=== PATIENT | female | born 1970 | race Caucasian/White ===

== ENCOUNTER → 2016-12-27 | Outpatient (CLI) | payer OTHER ==
[2016-12-27 18:37] LABS: BASO # 0.1 x10^3/uL (0.0-0.2); BASO % 1 % (0-3); EOS % 2 % (0-3); HEMATOCRIT 40.1 % (36.0-47.0); HEMOGLOBIN 13.7 g/dL (12.0-15.5); LYMPH # 1.7 x10^3/uL (1.0-4.8); LYMPH % 27 % (24-48); MEAN CORPUSCULAR HEMOGLOBIN 31 pg (25-35); MEAN CORPUSCULAR HGB CONC 34 g/dL (31-37); MEAN CORPUSCULAR VOLUME 91 fL (79-100); MONO % 10 % (0-9); NEUT % 60 % (31-73); PLATELET COUNT 281 x10^3/uL (140-400); RED BLOOD COUNT 4.43 x10^6/uL (3.50-5.40); RED CELL DISTRIBUTION WIDTH 14.6 % (11.5-14.5); WHITE BLOOD COUNT 6.4 x10^3/uL (4.0-11.0)
[2016-12-27 18:56] LABS: ALBUMIN 4.1 g/dL (3.4-5.0); ALBUMIN/GLOBULIN RATIO 1.3 (1.0-1.7); CALCIUM 8.8 mg/dL (8.5-10.1); CREATININE 1.1 mg/dL (0.6-1.0); POTASSIUM 3.6 mmol/L (3.5-5.1); TOTAL BILIRUBIN 0.5 mg/dL (0.2-1.0); TOTAL PROTEIN 7.3 g/dL (6.4-8.2)
[2016-12-27 19:03] LABS: CHOLESTEROL/HDL RATIO 3.7
[2016-12-28 12:22] LABS: VITAMIN D25(OH)TOTAL 45.5 ng/mL (30.0-100.0)
[2016-12-28 14:31] LABS: FSH 71.3 mIU/mL (.); PROLACTIN 19.9 ng/mL (4.8-23.3)
== END | disposition home or self-care (01) ==
LOC: LAB 17:51
PROVIDERS: ATTEND Physician Assistant Surgical
DX: Z00.00 Encounter for general adult medical examination without abnormal findings (principal)
CPT/HCPCS: 36415; 80053; 80061; 82306; 83001; 83002; 84146; 84443; 85027

== ENCOUNTER 2017-03-05 21:57 | Emergency (ER) | payer OTHER ==
[~2017-03-05] VITALS: Ht 170.2 cm; Wt 59.0 kg
[2017-03-05 22:12] VITALS: BP 130/58
[2017-03-05] MEDS ORDERED: NAPROXEN 500 MG TABLET PO STA (22:31)
[2017-03-05] MEDS ORDERED: HYDROcodone/APAP 5/325MG 1 TAB TABLET PO ONE (22:45)
[2017-03-05] MEDS ORDERED: ALPR1TAB2 PO (22:52)
[2017-03-05] MEDS ORDERED: OMEP40CA5 PO (22:53)
[2017-03-05] MEDS ORDERED: CYAN10005 PO (22:53)
[2017-03-05] MEDS ORDERED: ONDANSETRON ODT 4 MG TAB.RAPDIS. PO ONE (23:00)
[2017-03-05] MEDS ORDERED: MORPHINE SULFATE 10 MG/ML VIAL. IM ONE (23:00)
[2017-03-05] MEDS ORDERED: HYDR-971 PO (23:14)
--- NOTE | 2017-03-05 23:14 | PHYS DOC ---
Past Medical History Past Medical History: Anxiety, GERD Past Surgical History: Tubal ligation Alcohol Use: None Drug Use: None Adult General Chief Complaint Chief Complaint: ANKLE PROBLEM HPI HPI Patient is a 46 year old female who presents today with moderate right lateral ankle and right lateral foot pain that began today after she jumped off a 5 foot deck and twisted her ankle. The allergy Review of Systems Review of Systems Constitutional: Denies fever or chills [] Eyes: Denies change in visual acuity, redness, or eye pain [] Musculoskeletal:right lateral ankle and right lateral foot pain Integument: Denies rash or skin lesions [] Neurologic: Denies headache, focal weakness or sensory changes [] Endocrine: Denies polyuria or polydipsia [] Current Medications Current Medications Current Medications Medications (Trade) Dose Ordered Sig/Maricarmen Start Time Stop Time Status Last Admin Dose Admin Acetaminophen/ Hydrocodone Bitart (Lortab 5/325) 2 tab 1X ONCE 03/05/17 22:45 03/05/17 22:46 UNV Morphine Sulfate 5 mg 1X ONCE 03/05/17 23:00 03/05/17 23:01 DC 03/05/17 23:00 5 MG Naproxen (Naprosyn) 500 mg 1X STAT 03/05/17 22:31 03/05/17 22:32 UNV Ondansetron HCl (Zofran Odt) 4 mg 1X ONCE 03/05/17 23:00 03/05/17 23:01 DC 03/05/17 23:00 4 MG Allergies Allergies Allergies Coded Allergies Type Severity Reaction Last Updated Verified acetaminophen Allergy Unknown nausea vomitting 03/05/17 Yes hydrocodone Allergy Unknown nasuea vomiting 03/05/17 Yes oxycodone Allergy Unknown nausea vomitting 03/05/17 Yes Physical Exam Physical Exam Constitutional: Well developed, well nourished, no acute distress, non-toxic appearance. [] Skin: Warm, dry, no erythema, no rash. [] Back: No tenderness, no CVA tenderness. [] Extremities: Right ankle with moderate amount of soft tissue swelling. Tenderness on palpation of medial and lateral right ankle. Slight tenderness on palpation of the base of the fifth metatarsal of the right foot. Limited range of motion to the right ankle and foot due to pain. Full range of motion to the right toes. +2 right pedal pulse. Cap refill less than 2 seconds bilateral lower extremity. Neurologic: Alert and oriented X 3, normal motor function, normal sensory function, no focal deficits noted. [] Psychologic: Affect normal, judgement normal, mood normal. [] Current Patient Data Vital Signs Vital Signs Date Time Temp Pulse Resp B/P (MAP) Pulse Ox O2 Delivery O2 Flow Rate FiO2 03/05/17 23:00 99 Room Air 03/05/17 22:12 98.4 80 20 98.4 EKG EKG [] Radiology/Procedures Radiology/Procedures [] Course & Med Decision Making Course & Med Decision Making Pertinent Labs and Imaging studies reviewed. (See chart for details) Patient is in the ED right foot and right ankle pain after jumping off a deck rolling her ankle. Right foot and right ankle x-rays interpreted by Dr. Pierre were negative for any acute findings. Patient was placed in a posterior leg splint by the hvac maintenance technician. Neurovascular exam done by me post splinting is normal. Ice elevation encouraged. Follow-up with orthopedic doctor in the next 7 days Dragon Disclaimer Dragon Disclaimer This electronic medical record was generated, in whole or in part, using a voice recognition dictation system. Departure Departure Impression: Primary Impression: Right ankle sprain Additional Impression: Right foot sprain Disposition: 01 HOME, SELF-CARE Condition: STABLE Referrals: ANTONIO FERNANDEZ MD (PCP) EFRAIN COX MD Follow-up in the next 7 days Patient Instructions: Ankle Sprain, Foot Sprain-Brief Additional Instructions: You were seen for right ankle sprain and right sprain. Ice and elevate the extremity. Follow-up with the provided orthopedic doctor in the next 7 days. Scripts Naproxen (NAPROXEN) 500 Mg Tablet.dr 1 TAB PO BID, #60 TAB 2 Refills Prov: ARELY LAMB APRN 03/05/17 Ondansetron (ZOFRAN ODT) 4 Mg Tab.rapdis 1 TAB SL Q8HRS, #15 TAB Prov: ARELY LAMB APRN 03/05/17 Hydrocodone/Apap 5-325 (NORCO 5-325 TABLET) 1 Each Tablet 1 TAB PO PRN Q6HRS Y for PAIN, #14 TAB 0 Refills Prov: ARELY LAMB APRN 03/05/17 Problem Qualifiers Primary Impression: Right ankle sprain Encounter type: initial encounter Involved ligament of ankle: unspecified ligament Qualified Codes: S93.401A - Sprain of unspecified ligament of right ankle, initial encounter Additional Impression: Right foot sprain Encounter type: initial encounter Qualified Codes: S93.601A - Unspecified sprain of right foot, initial encounter ARELY LAMB PIPELINES MANAGER Mar 05, 2017 23:14
[2017-03-05] MEDS ORDERED: ONDA4TAB10 SL (23:17)
[2017-03-05] MEDS ORDERED: NAPR500T8 PO (23:22)
--- NOTE | 2017-03-06 08:52 | RAD ---
Indication fall, pain. AP oblique and lateral views of the right ankle were obtained. No bony abnormality is seen. Soft tissue swelling medially is noted.
--- NOTE | 2017-03-06 08:56 | RAD ---
Indication fall, pain. AP oblique and lateral views of the right foot were obtained. No bony abnormality is seen
== END 2017-03-05 23:32 | disposition home or self-care (01) ==
LOC: ER 21:57
DX: S93.401A Sprain of unspecified ligament of right ankle, initial encounter (principal); S93.601A Unspecified sprain of right foot, initial encounter; K21.9 Gastro-esophageal reflux disease without esophagitis; F41.9 Anxiety disorder, unspecified; Z88.5 Allergy status to narcotic agent; Z88.6 Allergy status to analgesic agent; X58.XXXA Exposure to other specified factors, initial encounter; Y93.39 Activity, other involving climbing, rappelling and jumping off; Y92.89 Other specified places as the place of occurrence of the external cause; Y99.8 Other external cause status
CPT/HCPCS: 29515; 73610; 73630; 96372; 99284; J2270; Q0162

== ENCOUNTER 2017-03-19 15:51 | Emergency (ER) | payer OTHER ==
[~2017-03-19 15:51] MED LIST: ALPR1TAB2 PO; CYAN10005 PO; HYDR-971 PO; NAPR500T8 PO; OMEP40CA5 PO; ONDA4TAB10 SL
[2017-03-19] MEDS ORDERED: IV RINGERS,LACTATED 1000ML 1,000 ML IV SCH (16:33)
--- NOTE | 2017-03-19 16:33 | PHYS DOC ---
Past Medical History Past Medical History: Anxiety, GERD Past Surgical History: Tubal ligation Alcohol Use: None Drug Use: None Adult General Chief Complaint Chief Complaint: NAUSEA/VOMITING/DIARRHA HPI HPI Patient is a 46 year old female who presents with nausea vomiting since yesterday. She states she hurt her ankle partial week ago is been on 5/ 325 hydrocodone has not had a bowel movement since then. She denies any abdominal pain. She states that she was seen yesterday for [facility] they did labs and gave her half a liter of fluids she requested an enema and they dismissed her without the enema. She states she's been having more nausea and not able to eat or drink. She still hasn't had a bowel movement today. Review of Systems Review of Systems Constitutional: Denies fever or chills [] Eyes: Denies change in visual acuity, redness, or eye pain [] HENT: Denies nasal congestion or sore throat [] Respiratory: Denies cough or shortness of breath [] Cardiovascular: No additional information not addressed in HPI [] GI: Denies abdominal pain, bloody stools or diarrhea, positive for nausea, vomiting, [] : Denies dysuria or hematuria [] Musculoskeletal: Denies back pain or joint pain [] Integument: Denies rash or skin lesions [] Neurologic: Denies headache, focal weakness or sensory changes [] Endocrine: Denies polyuria or polydipsia [] Current Medications Current Medications Current Medications Medications (Trade) Dose Ordered Sig/Maricarmen Start Time Stop Time Status Last Admin Dose Admin Info (Do NOT chart on this entry -- for MONITORING) 1 each PRN DAILY PRN 03/19/17 18:15 03/21/17 18:14 Iohexol (Omnipaque 240 Mg/ml) 50 ml 1X ONCE 03/19/17 18:00 03/19/17 18:01 DC Iohexol (Omnipaque 300 Mg/ml) 75 ml 1X ONCE 03/19/17 18:00 03/19/17 18:01 DC Lorazepam (Ativan) 1 mg 1X ONCE 03/19/17 18:15 03/19/17 18:16 DC Morphine Sulfate 2 mg PRN Q15MIN PRN 03/19/17 16:45 03/20/17 16:44 03/19/17 18:01 2 MG Ondansetron HCl (Zofran) 4 mg 1X ONCE 03/19/17 17:00 03/19/17 17:01 DC 03/19/17 17:06 4 MG Promethazine HCl 25 mg/Sodium Chloride 51 ml @ 101 mls/hr 1X ONCE 03/19/17 18:00 03/19/17 18:30 03/19/17 18:01 101 MLS/HR Ringer's Solution 1,000 ml @ 1,000 mls/hr Q1H 03/19/17 16:33 03/19/17 17:32 DC 03/19/17 17:05 1,000 MLS/HR Allergies Allergies Allergies Coded Allergies Type Severity Reaction Last Updated Verified acetaminophen Allergy Unknown nausea vomitting 03/05/17 Yes hydrocodone Allergy Unknown nasuea vomiting 03/05/17 Yes oxycodone Allergy Unknown nausea vomitting 03/05/17 Yes Physical Exam Physical Exam Constitutional: Well developed, well nourished, no acute distress, non-toxic appearance. [] HENT: Normocephalic, atraumatic, bilateral external ears normal, oropharynx moist, no oral exudates, nose normal. [] Eyes: PERRLA, EOMI, conjunctiva normal, no discharge. [] Neck: Normal range of motion, no tenderness, supple, no stridor. [] Cardiovascular:Heart rate regular rhythm, no murmur [] Lungs & Thorax: Bilateral breath sounds clear to auscultation [] Abdomen: Bowel sounds normal, soft, no tenderness, no masses, no pulsatile masses. [] Skin: Warm, dry, no erythema, no rash. [] Back: No tenderness, no CVA tenderness. [] Extremities: No tenderness, no cyanosis, no clubbing, ROM intact, no edema. [] Neurologic: Alert and oriented X 3, normal motor function, normal sensory function, no focal deficits noted. [] Psychologic: Affect normal, judgement normal, mood normal. [] Current Patient Data Vital Signs Vital Signs Date Time Temp Pulse Resp B/P (MAP) Pulse Ox O2 Delivery O2 Flow Rate FiO2 03/19/17 18:01 Room Air 03/19/17 16:20 98.8 92 35 162/61 (94) 100 98.8 Lab Values Laboratory Tests Test 03/19/17 15:37 03/19/17 16:20 03/19/17 16:50 POC Urine HCG, Qualitative Hcg negative (Negative) Urine Collection Type Unknown Urine Color Dk yellow Urine Clarity Clear Urine pH 5.5 Urine Specific [place] >=1.030 Urine Protein 30 mg/dL (NEG-TRACE) Urine Glucose (UA) Negative mg/dL (NEG) Urine Ketones (Stick) 40 mg/dL (NEG) Urine Blood Trace (NEG) Urine Nitrite Negative (NEG) Urine Bilirubin Small (NEG) Urine Urobilinogen Dipstick 0.2 mg/dL (0.2 mg/dL) Urine Leukocyte Esterase Negative (NEG) Urine RBC Rare /HPF (0-2) Urine WBC Rare /HPF (0-4) Urine Squamous Epithelial Cells Few /LPF Urine Bacteria Few /HPF (0-FEW) Urine Mucus Marked /LPF White Blood Count 10.9 x10^3/uL (4.0-11.0) Red Blood Count 4.30 x10^6/uL (3.50-5.40) Hemoglobin 13.1 g/dL (12.0-15.5) Hematocrit 37.8 % (36.0-47.0) Mean Corpuscular Volume 88 fL (79-100) Mean Corpuscular Hemoglobin 31 pg (25-35) Mean Corpuscular Hemoglobin Concent 35 g/dL (31-37) Red Cell Distribution Width 13.7 % (11.5-14.5) Platelet Count 362 x10^3/uL (140-400) Neutrophils (%) (Auto) 83 % (31-73) H Lymphocytes (%) (Auto) 8 % (24-48) L Monocytes (%) (Auto) 9 % (0-9) Eosinophils (%) (Auto) 0 % (0-3) Basophils (%) (Auto) 0 % (0-3) Neutrophils # (Auto) 9.1 x10^3uL (1.8-7.7) H Lymphocytes # (Auto) 0.8 x10^3/uL (1.0-4.8) L Monocytes # (Auto) 1.0 x10^3/uL (0.0-1.1) Eosinophils # (Auto) 0.0 x10^3/uL (0.0-0.7) Basophils # (Auto) 0.0 x10^3/uL (0.0-0.2) Prothrombin Time 13.5 SEC (11.7-14.0) Prothrombin Time INR 1.1 (0.8-1.1) PTT 26 SEC (24-38) Sodium Level 141 mmol/L (136-145) Potassium Level 3.3 mmol/L (3.5-5.1) L Chloride Level 102 mmol/L (98-107) Carbon Dioxide Level 27 mmol/L (21-32) Anion Gap 12 (6-14) Blood Urea Nitrogen 22 mg/dL (7-20) H Creatinine 0.9 mg/dL (0.6-1.0) Estimated GFR (Cockcroft-Gault) 68.0 Glucose Level 121 mg/dL (70-99) H Calcium Level 9.3 mg/dL (8.5-10.1) Total Bilirubin 0.7 mg/dL (0.2-1.0) Direct Bilirubin 0.1 mg/dL (0.0-0.2) Aspartate Amino Transferase (AST) 16 U/L (15-37) Alanine Aminotransferase (ALT) 34 U/L (14-59) Alkaline Phosphatase 68 U/L (46-116) Creatine Kinase 84 U/L (26-192) Creatine Kinase MB (Mass) 0.9 ng/mL (0.0-3.6) Creatine Kinase MB Relative Index 1.1 % (0-4) Total Protein 8.1 g/dL (6.4-8.2) Albumin 4.4 g/dL (3.4-5.0) Lipase 76 U/L (73-393) Laboratory Tests 03/19/17 16:50 Laboratory Tests 03/19/17 16:50 EKG EKG [] Radiology/Procedures Radiology/Procedures [] Impressions: Nausea vomiting Course & Med Decision Making Course & Med Decision Making Pertinent Labs and Imaging studies reviewed. (See chart for details) Labs show any acute abnormality's. CT abdomen and pelvis is pending at this time. Patient's being checked out to Dr. Small for final disposition. Dragon Disclaimer Dragon Disclaimer This electronic medical record was generated, in whole or in part, using a voice recognition dictation system. Departure Departure Referrals: DANIA LIPSCOMB MD (PCP) KIRA GENTILE MD Mar 19, 2017 16:33
[2017-03-19 16:43] LABS: BILIRUBIN,URINE SMALL (NEG); GLUCOSE,URINE NEGATIVE (NEG); NITRITE,URINE NEGATIVE (NEG); PH,URINE 5.5; PROTEIN,URINE 30 mg/dL (NEG-TRACE); UROBILINOGEN,URINE 0.2 mg/dL (0.2 mg/dL)
[2017-03-19 16:55] LABS: BACTERIA,URINE FEW /HPF (0-FEW); RBC,URINE RARE /HPF (0-2); SQUAMOUS EPITHELIAL CELL,UR FEW /LPF; WBC,URINE RARE /HPF (0-4)
[2017-03-19 17:00] LABS: BASO % 0 % (0-3); EOS % 0 % (0-3); HEMATOCRIT 37.8 % (36.0-47.0); HEMOGLOBIN 13.1 g/dL (12.0-15.5); LYMPH # 0.8 x10^3/uL (1.0-4.8); LYMPH % 8 % (24-48); MEAN CORPUSCULAR HEMOGLOBIN 31 pg (25-35); MEAN CORPUSCULAR HGB CONC 35 g/dL (31-37); MEAN CORPUSCULAR VOLUME 88 fL (79-100); MONO % 9 % (0-9); NEUT % 83 % (31-73); PLATELET COUNT 362 x10^3/uL (140-400); RED CELL DISTRIBUTION WIDTH 13.7 % (11.5-14.5); WHITE BLOOD COUNT 10.9 x10^3/uL (4.0-11.0)
[2017-03-19] MEDS ORDERED: ONDANSETRON PF 4 MG/2 ML VIAL. IV ONE (17:00)
[2017-03-19] MEDS: MORPHINE SULFATE 2 MG/ML DISP.SYRIN. IV/SQ PRN ×2 (17:06→18:01)
[2017-03-19 17:09] LABS: INR 1.1 (0.8-1.1); PROTHROMBIN TIME PATIENT 13.5 SEC (11.7-14.0)
[2017-03-19 17:26] LABS: CALCIUM 9.3 mg/dL (8.5-10.1); CREATININE 0.9 mg/dL (0.6-1.0); POTASSIUM 3.3 mmol/L (3.5-5.1)
[2017-03-19 17:31] LABS: ALBUMIN 4.4 g/dL (3.4-5.0); DIRECT BILIRUBIN 0.1 mg/dL (0.0-0.2); TOTAL BILIRUBIN 0.7 mg/dL (0.2-1.0); TOTAL PROTEIN 8.1 g/dL (6.4-8.2)
[2017-03-19 17:50] LABS: CKMB MASS 0.9 ng/mL (0.0-3.6)
[2017-03-19] MEDS ORDERED: IOHEXOL 240 MG/ML 50ML VIAL. PO ONE (18:00)
[2017-03-19] MEDS ORDERED: IOHEXOL 300 MG/ML 75 ML VIAL IV ONE (18:00)
[2017-03-19] MEDS ORDERED: PROMETHAZINE 25 MG in IV NORMAL SALINE 50ML 50 ML IV ONE (18:00)
[2017-03-19] MEDS ORDERED: CONTRAST GIVEN MC PRN (18:15)
[2017-03-19 20:30] VITALS: BP 102/52
--- NOTE | 2017-03-19 20:30 | RAD ---
CT abdomen and pelvis with contrast History: Left lower quadrant pain for 2 days Technique: After the administration of oral and intravenous contrast, CT imaging was performed of the abdomen and pelvis. Multiplanar images are reviewed. Exposure: One or more of the following individualized dose reduction techniques were utilized for this examination: 1. Automated exposure control 2. Adjustment of the mA and/or kV according to patient size 3. Use of iterative reconstruction technique. Comparison: November 20, 2005 Findings: There is no significant abnormality of the visualized lung bases. There is no significant abnormality of the liver, spleen, pancreas, adrenal glands. Both kidneys enhance without hydronephrosis. Gallbladder is present without obvious intraluminal abnormality by CT. Most of the oral contrast is in the proximal small bowel, not in the colon. There is more prominent retained stool in segments of the colon such as ascending through transverse colon, although also at the junction of the descending and sigmoid colon. There is no significant inflammatory change adjacent to the bowel. There is no evidence of bowel obstruction, free fluid, or free air. Atelectasis segment of normal appendix is probably visualized, difficult to otherwise evaluate due to lack of contrast opacification in this region. There is degenerative disc disease and spondylosis eccentric to the left at L4-5. There is more significant narrowing of the left L4-5 neural foramen by disc osteophyte complex with likely contact exiting left L4 nerve root. There is facet degenerative change greatest L3-4 and L4-5. The bladder has a normal configuration. Impression: 1. There is variable retained prominent stool in the colon. 2. There is narrowing of the left L4-5 neural foramen with contact exiting left L4 nerve root by disc osteophyte complex. Electronically signed by: Noble Moran MD (03/19/2017 8:26 PM) [facility]
[2017-03-19] MEDS ORDERED: MAGNESIUM CITRATE 296 ML SOLUTION. PO ONE (20:45)
--- NOTE | 2017-03-20 08:12 | RAD ---
Acute abdomen series with chest, 3 views, 03/19/2017: History: Constipation, left-sided pain There is increased stool throughout the colon. The abdominal gas pattern is otherwise unremarkable. No free air is seen in the abdomen. There is no evidence of organomegaly or abnormal abdominal calcification. The heart size and pulmonary vascularity are normal. The lungs are clear. There is no evidence of pleural fluid. IMPRESSION: Increased stool throughout the colon compatible with the history of constipation.
== END 2017-03-19 21:30 | disposition home or self-care (01) ==
LOC: ER 15:51
DX: R11.2 Nausea with vomiting, unspecified (principal); K21.9 Gastro-esophageal reflux disease without esophagitis; Z88.6 Allergy status to analgesic agent; Z88.5 Allergy status to narcotic agent
CPT/HCPCS: 36415; 74022; 74177; 80048; 80076; 81001; 81025; 82553; 83690; 85027; 85610; 85730; 96361; 96365; 96375; 96376; 99285; J2060; J2270; J2405; J2550; Q9966; Q9967; J7120

== ENCOUNTER 2017-03-21 09:39 | Inpatient (IN) | payer OTHER ==
[~2017-03-21] VITALS: Ht 170.2 cm; Wt 54.2 kg
[2017-03-21] MEDS ORDERED: IV NORMAL SALINE 1000ML BAG 1,000 ML IV ONE ×2 (10:30→12:00)
[2017-03-21] MEDS ORDERED: ONDANSETRON PF 4 MG/2 ML VIAL. IV ONE (12:00)
[2017-03-21 13:08] VITALS: BP 110/48
[2017-03-21] MEDS: ONDANSETRON PF 4 MG/2 ML VIAL. IV PRN ×2 (14:43→21:49)
[2017-03-21] MEDS: POTASSIUM CL 20MEQ D5-0.45NACL 1,000 ML IV SCH ×2 (14:51→21:50)
[2017-03-21 15:00] VITALS: BP 96/40
[2017-03-21 15:12] LABS: BASO % 0 % (0-3); EOS % 0 % (0-3); HEMATOCRIT 32.4 % (36.0-47.0); HEMOGLOBIN 10.7 g/dL (12.0-15.5); LYMPH # 1.4 x10^3/uL (1.0-4.8); LYMPH % 17 % (24-48); MEAN CORPUSCULAR HEMOGLOBIN 30 pg (25-35); MEAN CORPUSCULAR HGB CONC 33 g/dL (31-37); MEAN CORPUSCULAR VOLUME 91 fL (79-100); MONO % 12 % (0-9); NEUT % 71 % (31-73); PLATELET COUNT 241 x10^3/uL (140-400); RED BLOOD COUNT 3.55 x10^6/uL (3.50-5.40); RED CELL DISTRIBUTION WIDTH 13.2 % (11.5-14.5); WHITE BLOOD COUNT 8.3 x10^3/uL (4.0-11.0)
[2017-03-21 15:29] LABS: ALBUMIN 3.3 g/dL (3.4-5.0); ALBUMIN/GLOBULIN RATIO 1.3 (1.0-1.7); CALCIUM 7.3 mg/dL (8.5-10.1); CREATININE 0.8 mg/dL (0.6-1.0); GFR 77.9; POTASSIUM 3.2 mmol/L (3.5-5.1); TOTAL BILIRUBIN 0.5 mg/dL (0.2-1.0); TOTAL PROTEIN 5.9 g/dL (6.4-8.2)
--- NOTE | 2017-03-21 15:45 | RAD ---
Portable abdomen, 03/21/2017: History: Abdominal pain, nausea and vomiting There is increased stool in the colon. The abdominal gas pattern is otherwise unremarkable. There is no evidence of organomegaly or abnormal abdominal calcifications. IMPRESSION: Increased stool in the colon.
[2017-03-21] MEDS: LUBIPROSTONE 8 MCG CAPSULE PO SCH (17:00)
[2017-03-21] MEDS: KETOROLAC TROMETHAMINE 30 MG/ML INJ. IV PRN (17:48)
[2017-03-21] MEDS ORDERED: PEG 3350/NA SULF,BICARB,CL/KCL 4,000 ML SOLUTION. PO ONE (18:00)
[2017-03-21] MEDS: PROMETHAZINE 25 MG in IV NORMAL SALINE 50ML 50 ML IV PRN (19:24)
[2017-03-21 19:48] VITALS: BP 117/64
[2017-03-21 23:21] VITALS: BP 104/47
[2017-03-22 03:14] VITALS: BP 102/52
[2017-03-22] MEDS: POTASSIUM CL 20MEQ D5-0.45NACL 1,000 ML IV SCH ×3 (05:50→17:40)
[2017-03-22 07:00] VITALS: BP 108/55
[2017-03-22] MEDS: LUBIPROSTONE 8 MCG CAPSULE PO SCH ×2 (08:23→17:46)
[2017-03-22] MEDS: POLYETHYLENE GLYCOL 3350 17 GM PACKET. PO SCH (08:24)
[2017-03-22 10:34] VITALS: BP 98/58
[2017-03-22] MEDS: PROMETHAZINE 25 MG in IV NORMAL SALINE 50ML 50 ML IV PRN ×2 (11:06→20:03)
[2017-03-22] MEDS ORDERED: METHYLNALTREXONE 12 MG/0.6 ML VIAL. SQ ONE (12:00)
--- NOTE | 2017-03-22 12:01 | PDOC2 ---
CONSULT Date of Consult Date of Consult DATE: 03/22/17 TIME: 11:58 Reason for Consult Reason for Consult: abd pain/constipation Current Medications Current Medications Current Medications Sodium Chloride 1,000 ml @ 0 mls/hr 1X ONCE IV Last administered on 03/21/17 10:06; Start 03/21/17 at 10:30; Stop 03/21/17 at 10:31; Status DC Sodium Chloride 1,000 ml @ 1,000 mls/hr 1X ONCE IV Last administered on 11:35; Start 03/21/17 at 12:00; Stop 03/21/17 at 12:59; Status DC Ondansetron HCl (Zofran) 4 mg 1X ONCE IV Last administered on 03/21/17 12:15; Start 03/21/17 at 12:00; Stop 03/21/17 at 12:02; Status DC Potassium Chloride/Dextrose/ Sod Cl 1,000 ml @ 150 mls/hr Q6H40M IV Last administered on 03/22/17 05:50; Start 03/21/17 at 15:00 Ondansetron HCl (Zofran) 4 mg PRN Q4HRS PRN IV NAUSEA/VOMITING Last administered on 03/21/17 21:49; Start 03/21/17 at 14:30 Lorazepam (Ativan) 2 mg PRN Q12HR PRN IV ANXIETY / AGITATION Last administered on 03/21/17 14:53; Start 03/21/17 at 14:30; Stop 03/21/17 at 21:28; Status DC Polyethylene Glycol (miraLAX PACKET) 17 gm DAILY PO Last administered on 08:24; Start 03/22/17 at 09:00 Sodium Cl/Sod Bicarb/Potass Cl/ PEG (Golytely) 4,000 ml 1X ONCE PO Last administered on 03/21/17 17:48; Start 03/21/17 at 18:00; Stop 03/21/17 at 18:01; Status DC Lubiprostone (Amitiza) 8 mcg BIDWMEALS PO Last administered on 03/22/17 08:23; Start 03/21/17 at 17:00 Ketorolac Tromethamine (Toradol) 30 mg PRN Q6HRS PRN IV PAIN Last administered on 03/21/17 17:48; Start 03/21/17 at 17:00; Stop 03/26/17 at 16:59 Promethazine HCl 25 mg/Sodium Chloride 51 ml @ 101 mls/hr PRN Q6HRS PRN IV NAUSEA/VOMITING Last administered on 03/22/17 11:06; Start 03/21/17 at 18:00 Lorazepam (Ativan) 2 mg PRN Q8HRS PRN IV ANXIETY / AGITATION Last administered on 03/22/17 08:23; Start 03/21/17 at 22:00 Methylnaltrexone [place] (Relistor) 12 mg 1X ONCE SQ ; Start 03/22/17 at 12:00; Stop 03/22/17 at 12:01 Lubiprostone (Amitiza) 24 mcg BIDWMEALS PO ; Start 03/22/17 at 17:00 Active Scripts Active Naproxen 500 Mg Tablet. 1 Tab PO BID Zofran Odt (Ondansetron) 4 Mg Tab.rapdis 1 Tab SL Q8HRS Albin 5-325 Tablet (Acetaminophen/Hydrocodone Bitart) 1 Each Tablet 1 Tab PO PRN Q6HRS PRN Reported Vitamin B-12 (Cyanocobalamin (Vitamin B-12)) 1,000 Mcg Tablet 1 Tab PO DAILY Omeprazole 40 Mg Capsule. 1 Cap PO DAILY Xanax (Alprazolam) 1 Mg Tablet 1 Tab PO BID Allergies Allergies: Coded Allergies: acetaminophen (Verified Allergy, Intermediate, nausea vomitting, 03/21/17) hydrocodone (Verified Allergy, Intermediate, nasuea vomiting, 03/21/17) oxycodone (Verified Allergy, Intermediate, nausea vomitting, 03/21/17) Vitals VITALS Vital Signs Date Time Temp Pulse Resp B/P (MAP) Pulse Ox O2 Delivery O2 Flow Rate FiO2 03/22/17 10:34 99.7 71 20 98/58 (71) 100 Room Air 99.7 Labs Labs Laboratory Tests Test 03/21/17 14:50 White Blood Count 8.3 x10^3/uL (4.0-11.0) Red Blood Count 3.55 x10^6/uL (3.50-5.40) Hemoglobin 10.7 g/dL (12.0-15.5) Hematocrit 32.4 % (36.0-47.0) Mean Corpuscular Volume 91 fL (79-100) Mean Corpuscular Hemoglobin 30 pg (25-35) Mean Corpuscular Hemoglobin Concent 33 g/dL (31-37) Red Cell Distribution Width 13.2 % (11.5-14.5) Platelet Count 241 x10^3/uL (140-400) Neutrophils (%) (Auto) 71 % (31-73) Lymphocytes (%) (Auto) 17 % (24-48) Monocytes (%) (Auto) 12 % (0-9) Eosinophils (%) (Auto) 0 % (0-3) Basophils (%) (Auto) 0 % (0-3) Neutrophils # (Auto) 5.8 x10^3uL (1.8-7.7) Lymphocytes # (Auto) 1.4 x10^3/uL (1.0-4.8) Monocytes # (Auto) 1.0 x10^3/uL (0.0-1.1) Eosinophils # (Auto) 0.0 x10^3/uL (0.0-0.7) Basophils # (Auto) 0.0 x10^3/uL (0.0-0.2) Sodium Level 140 mmol/L (136-145) Potassium Level 3.2 mmol/L (3.5-5.1) Chloride Level 106 mmol/L (98-107) Carbon Dioxide Level 29 mmol/L (21-32) Anion Gap 5 (6-14) Blood Urea Nitrogen 18 mg/dL (7-20) Creatinine 0.8 mg/dL (0.6-1.0) Estimated GFR (Cockcroft-Gault) 77.9 BUN/Creatinine Ratio 23 (6-20) Glucose Level 91 mg/dL (70-99) Calcium Level 7.3 mg/dL (8.5-10.1) Total Bilirubin 0.5 mg/dL (0.2-1.0) Aspartate Amino Transf (AST/SGOT) 9 U/L (15-37) Alanine Aminotransferase (ALT/SGPT) 25 U/L (14-59) Alkaline Phosphatase 49 U/L (46-116) Total Protein 5.9 g/dL (6.4-8.2) Albumin 3.3 g/dL (3.4-5.0) Albumin/Globulin Ratio 1.3 (1.0-1.7) Laboratory Tests Test 03/21/17 14:50 White Blood Count 8.3 x10^3/uL (4.0-11.0) Red Blood Count 3.55 x10^6/uL (3.50-5.40) Hemoglobin 10.7 g/dL (12.0-15.5) Hematocrit 32.4 % (36.0-47.0) Mean Corpuscular Volume 91 fL (79-100) Mean Corpuscular Hemoglobin 30 pg (25-35) Mean Corpuscular Hemoglobin Concent 33 g/dL (31-37) Red Cell Distribution Width 13.2 % (11.5-14.5) Platelet Count 241 x10^3/uL (140-400) Neutrophils (%) (Auto) 71 % (31-73) Lymphocytes (%) (Auto) 17 % (24-48) Monocytes (%) (Auto) 12 % (0-9) Eosinophils (%) (Auto) 0 % (0-3) Basophils (%) (Auto) 0 % (0-3) Neutrophils # (Auto) 5.8 x10^3uL (1.8-7.7) Lymphocytes # (Auto) 1.4 x10^3/uL (1.0-4.8) Monocytes # (Auto) 1.0 x10^3/uL (0.0-1.1) Eosinophils # (Auto) 0.0 x10^3/uL (0.0-0.7) Basophils # (Auto) 0.0 x10^3/uL (0.0-0.2) Sodium Level 140 mmol/L (136-145) Potassium Level 3.2 mmol/L (3.5-5.1) Chloride Level 106 mmol/L (98-107) Carbon Dioxide Level 29 mmol/L (21-32) Anion Gap 5 (6-14) Blood Urea Nitrogen 18 mg/dL (7-20) Creatinine 0.8 mg/dL (0.6-1.0) Estimated GFR (Cockcroft-Gault) 77.9 BUN/Creatinine Ratio 23 (6-20) Glucose Level 91 mg/dL (70-99) Calcium Level 7.3 mg/dL (8.5-10.1) Total Bilirubin 0.5 mg/dL (0.2-1.0) Aspartate Amino Transf (AST/SGOT) 9 U/L (15-37) Alanine Aminotransferase (ALT/SGPT) 25 U/L (14-59) Alkaline Phosphatase 49 U/L (46-116) Total Protein 5.9 g/dL (6.4-8.2) Albumin 3.3 g/dL (3.4-5.0) Albumin/Globulin Ratio 1.3 (1.0-1.7) Assessment/Plan Assessment/Plan Abd pain- with constipation, most likely opioid induced. Await response to bowel prep with go lytely and amitiza. One dose of relistor will be administered as well. TFTS to be checked in interim. Full note dictated CHACE MCNEAL MD Mar 22, 2017 12:01
--- NOTE | 2017-03-22 14:32 | PDOC1 ---
History and Physical Date of Admission Date of Admission DATE: 03/21/17 Identification/Chief Complaint Chief Complaint abd pain, Nausea , Vomiting Problems: Source Source: Chart review, Patient History of Present Illness History of Present Illness had ankle sprain 2 weeks ago , has been taking [place] and anti inflammatory, now with constipation , NO BM x 2 weeks and N/V, dehydration, abd pain, weak, not feeling good, lost weight Past Medical History Psych: Anxiety, Depression Musculoskeletal: Other (ankle sprain, pain) Past Surgical History Past Surgical History: Tubal Ligation Family History Family History: Depression Social History Smoke: No ALCOHOL: rare Drugs: None Current Medications Current Medications Current Medications Sodium Chloride 1,000 ml @ 0 mls/hr 1X ONCE IV Last administered on 03/21/17 10:06; Start 03/21/17 at 10:30; Stop 03/21/17 at 10:31; Status DC Sodium Chloride 1,000 ml @ 1,000 mls/hr 1X ONCE IV Last administered on 11:35; Start 03/21/17 at 12:00; Stop 03/21/17 at 12:59; Status DC Ondansetron HCl (Zofran) 4 mg 1X ONCE IV Last administered on 03/21/17 12:15; Start 03/21/17 at 12:00; Stop 03/21/17 at 12:02; Status DC Potassium Chloride/Dextrose/ Sod Cl 1,000 ml @ 150 mls/hr Q6H40M IV Last administered on 03/22/17 05:50; Start 03/21/17 at 15:00 Ondansetron HCl (Zofran) 4 mg PRN Q4HRS PRN IV NAUSEA/VOMITING Last administered on 03/21/17 21:49; Start 03/21/17 at 14:30 Lorazepam (Ativan) 2 mg PRN Q12HR PRN IV ANXIETY / AGITATION Last administered on 03/21/17 14:53; Start 03/21/17 at 14:30; Stop 03/21/17 at 21:28; Status DC Polyethylene Glycol (miraLAX PACKET) 17 gm DAILY PO Last administered on 08:24; Start 03/22/17 at 09:00 Sodium Cl/Sod Bicarb/Potass Cl/ PEG (Golytely) 4,000 ml 1X ONCE PO Last administered on 03/21/17 17:48; Start 03/21/17 at 18:00; Stop 03/21/17 at 18:01; Status DC Lubiprostone (Amitiza) 8 mcg BIDWMEALS PO Last administered on 03/22/17 08:23; Start 03/21/17 at 17:00; Stop 03/22/17 at 12:19; Status DC Ketorolac Tromethamine (Toradol) 30 mg PRN Q6HRS PRN IV PAIN Last administered on 03/21/17 17:48; Start 03/21/17 at 17:00; Stop 03/26/17 at 16:59 Promethazine HCl 25 mg/Sodium Chloride 51 ml @ 101 mls/hr PRN Q6HRS PRN IV NAUSEA/VOMITING Last administered on 03/22/17 11:06; Start 03/21/17 at 18:00 Lorazepam (Ativan) 2 mg PRN Q8HRS PRN IV ANXIETY / AGITATION Last administered on 03/22/17 08:23; Start 03/21/17 at 22:00 Methylnaltrexone [place] (Relistor) 12 mg 1X ONCE SQ Last administered on 12:58; Start 03/22/17 at 12:00; Stop 03/22/17 at 12:01; Status DC Lubiprostone (Amitiza) 24 mcg BIDWMEALS PO ; Start 03/22/17 at 17:00 Active Scripts Active Naproxen 500 Mg Tablet. 1 Tab PO BID Zofran Odt (Ondansetron) 4 Mg Tab.rapdis 1 Tab SL Q8HRS Gladstone 5-325 Tablet (Acetaminophen/Hydrocodone Bitart) 1 Each Tablet 1 Tab PO PRN Q6HRS PRN Reported Vitamin B-12 (Cyanocobalamin (Vitamin B-12)) 1,000 Mcg Tablet 1 Tab PO DAILY Omeprazole 40 Mg Capsule. 1 Cap PO DAILY Xanax (Alprazolam) 1 Mg Tablet 1 Tab PO BID Allergies Allergies: Coded Allergies: acetaminophen (Verified Allergy, Intermediate, nausea vomitting, 03/21/17) hydrocodone (Verified Allergy, Intermediate, nasuea vomiting, 03/21/17) oxycodone (Verified Allergy, Intermediate, nausea vomitting, 03/21/17) ROS General: YES: Appetite PSYCHOLOGICAL ROS: YES: Anxiety HEENT: YES: Heacaches Gastrointestinal: Yes Nausea, Yes Vomiting, Yes Abdominal Pain, Yes Constipation Neurological: Yes Dizziness Physical Exam General: Alert, Oriented X3 HEENT: Atraumatic, PERRLA Lungs: Clear to auscultation Heart: RRR Abdomen: Normal bowel sounds, Other (bloated, diffuse mild tenderness) Extremities: No clubbing, No cyanosis, No edema Skin: No rashes Neuro: Normal gait, Normal speech, Strength at 5/5 X4 ext Psych/Mental Status: Mental status NL Vitals Vitals Vital Signs Date Time Temp Pulse Resp B/P (MAP) Pulse Ox O2 Delivery O2 Flow Rate FiO2 03/22/17 10:34 99.7 71 20 98/58 (71) 100 Room Air 99.7 Labs Labs Laboratory Tests Test 03/21/17 14:50 White Blood Count 8.3 x10^3/uL (4.0-11.0) Red Blood Count 3.55 x10^6/uL (3.50-5.40) Hemoglobin 10.7 g/dL (12.0-15.5) Hematocrit 32.4 % (36.0-47.0) Mean Corpuscular Volume 91 fL (79-100) Mean Corpuscular Hemoglobin 30 pg (25-35) Mean Corpuscular Hemoglobin Concent 33 g/dL (31-37) Red Cell Distribution Width 13.2 % (11.5-14.5) Platelet Count 241 x10^3/uL (140-400) Neutrophils (%) (Auto) 71 % (31-73) Lymphocytes (%) (Auto) 17 % (24-48) Monocytes (%) (Auto) 12 % (0-9) Eosinophils (%) (Auto) 0 % (0-3) Basophils (%) (Auto) 0 % (0-3) Neutrophils # (Auto) 5.8 x10^3uL (1.8-7.7) Lymphocytes # (Auto) 1.4 x10^3/uL (1.0-4.8) Monocytes # (Auto) 1.0 x10^3/uL (0.0-1.1) Eosinophils # (Auto) 0.0 x10^3/uL (0.0-0.7) Basophils # (Auto) 0.0 x10^3/uL (0.0-0.2) Sodium Level 140 mmol/L (136-145) Potassium Level 3.2 mmol/L (3.5-5.1) Chloride Level 106 mmol/L (98-107) Carbon Dioxide Level 29 mmol/L (21-32) Anion Gap 5 (6-14) Blood Urea Nitrogen 18 mg/dL (7-20) Creatinine 0.8 mg/dL (0.6-1.0) Estimated GFR (Cockcroft-Gault) 77.9 BUN/Creatinine Ratio 23 (6-20) Glucose Level 91 mg/dL (70-99) Calcium Level 7.3 mg/dL (8.5-10.1) Total Bilirubin 0.5 mg/dL (0.2-1.0) Aspartate Amino Transf (AST/SGOT) 9 U/L (15-37) Alanine Aminotransferase (ALT/SGPT) 25 U/L (14-59) Alkaline Phosphatase 49 U/L (46-116) Total Protein 5.9 g/dL (6.4-8.2) Albumin 3.3 g/dL (3.4-5.0) Albumin/Globulin Ratio 1.3 (1.0-1.7) Laboratory Tests Test 03/21/17 14:50 White Blood Count 8.3 x10^3/uL (4.0-11.0) Red Blood Count 3.55 x10^6/uL (3.50-5.40) Hemoglobin 10.7 g/dL (12.0-15.5) Hematocrit 32.4 % (36.0-47.0) Mean Corpuscular Volume 91 fL (79-100) Mean Corpuscular Hemoglobin 30 pg (25-35) Mean Corpuscular Hemoglobin Concent 33 g/dL (31-37) Red Cell Distribution Width 13.2 % (11.5-14.5) Platelet Count 241 x10^3/uL (140-400) Neutrophils (%) (Auto) 71 % (31-73) Lymphocytes (%) (Auto) 17 % (24-48) Monocytes (%) (Auto) 12 % (0-9) Eosinophils (%) (Auto) 0 % (0-3) Basophils (%) (Auto) 0 % (0-3) Neutrophils # (Auto) 5.8 x10^3uL (1.8-7.7) Lymphocytes # (Auto) 1.4 x10^3/uL (1.0-4.8) Monocytes # (Auto) 1.0 x10^3/uL (0.0-1.1) Eosinophils # (Auto) 0.0 x10^3/uL (0.0-0.7) Basophils # (Auto) 0.0 x10^3/uL (0.0-0.2) Sodium Level 140 mmol/L (136-145) Potassium Level 3.2 mmol/L (3.5-5.1) Chloride Level 106 mmol/L (98-107) Carbon Dioxide Level 29 mmol/L (21-32) Anion Gap 5 (6-14) Blood Urea Nitrogen 18 mg/dL (7-20) Creatinine 0.8 mg/dL (0.6-1.0) Estimated GFR (Cockcroft-Gault) 77.9 BUN/Creatinine Ratio 23 (6-20) Glucose Level 91 mg/dL (70-99) Calcium Level 7.3 mg/dL (8.5-10.1) Total Bilirubin 0.5 mg/dL (0.2-1.0) Aspartate Amino Transf (AST/SGOT) 9 U/L (15-37) Alanine Aminotransferase (ALT/SGPT) 25 U/L (14-59) Alkaline Phosphatase 49 U/L (46-116) Total Protein 5.9 g/dL (6.4-8.2) Albumin 3.3 g/dL (3.4-5.0) Albumin/Globulin Ratio 1.3 (1.0-1.7) VTE Prophylaxis Ordered VTE Prophylaxis Devices: No VTE Pharmacological Prophylaxi: No Assessment/Plan Assessment/Plan 1-constipation likely due to pain meds 2-abd pain,N/V due to constipation reviewed CT abd and KUB 3-anxiety ANTONIO FERNANDEZ MD Mar 22, 2017 14:32
[2017-03-22 14:42] VITALS: BP 98/62
[2017-03-22] MEDS: KETOROLAC TROMETHAMINE 30 MG/ML INJ. IV PRN (16:35)
[2017-03-22 19:00] VITALS: BP 116/41
[2017-03-22] MEDS ORDERED: MORPHINE SULFATE 2 MG/ML DISP.SYRIN. IV ONE (21:00)
[2017-03-22 23:00] VITALS: BP 89/41
--- NOTE | 2017-03-23 00:04 | CONS ---
DATE OF CONSULTATION: 03/22/2017 REASON FOR CONSULTATION: Constipation. REFERRING PHYSICIAN: Dr. Barrios. HISTORY OF PRESENT ILLNESS: A 46-year-old female with past medical history significant for tubal ligation, GERD, anxiety, is admitted at [facility] with worsening constipation. She had sprained ankle after a fall, has been on narcotic analgesics since, has been in [facility] with imaging studies, which revealed on CT scan only retained stool, but unable to move her bowels. Since admission has been given laxatives here and has had minimal response. A consultation is therefore requested. PAST MEDICAL HISTORY: GERD, anxiety, tubal ligation. ALLERGIES: HYDROCODONE, OXYCODONE. MEDICATIONS: At home are antianxiety medications. SOCIAL HISTORY: Does not drink or smoke in excess. FAMILY HISTORY: Noncontributory. REVIEW OF SYSTEMS: Per above. PHYSICAL EXAMINATION: GENERAL: Well-nourished, well-developed female. She is afebrile. VITAL SIGNS: ____, respirations 20, blood pressure 98/58. HEENT: Reveals normocephalic, atraumatic head. Pupils and extraocular muscles are not tested. Sclerae anicteric. NECK: Supple. LUNGS: Clear. CARDIOVASCULAR: Reveals an S1, S2 without S3, S4 or appreciable murmur. ABDOMEN: Soft abdomen with normal bowel sounds, without appreciable hepatosplenomegaly. EXTREMITIES: Reveals no cyanosis, clubbing or edema. LABORATORY STUDIES: Hemoglobin 10.7, hematocrit 32.4, white count 8.3, platelet count is 241,000. Sodium 140, potassium 3.2, chloride 106, BUN 18, creatinine 0.8, glucose is 91. Calcium 7.3, total bilirubin 0.5, AST of 9, ALT 25, alkaline phosphatase 49, total protein ____, albumin 3.3. IMPRESSION: Abdominal pain, most likely secondary opioid-induced constipation. We will continue with the regimen of GoLYTELY as well as Amitiza 24 mcg p.o. b.i.d., Relistor 12 mg subQ will be given x 1 and enemas will be administered as needed if no improvement, I would like to thank Dr. Barrios for allowing us to consult and participate in this patient's care. . CHACE MCNEAL MD DR: Genaro JOB#: [id number] / [id number]
[2017-03-23] MEDS: POTASSIUM CL 20MEQ D5-0.45NACL 1,000 ML IV SCH ×4 (01:04→20:20)
[2017-03-23 03:59] VITALS: BP 105/42
[2017-03-23 04:35] LABS: HEMATOCRIT 32.5 % (36.0-47.0); HEMOGLOBIN 10.8 g/dL (12.0-15.5); RED BLOOD COUNT 3.58 x10^6/uL (3.50-5.40); WHITE BLOOD COUNT 6.2 x10^3/uL (4.0-11.0)
[2017-03-23 05:10] LABS: ALBUMIN/GLOBULIN RATIO 1.2 (1.0-1.7); CREATININE 0.9 mg/dL (0.6-1.0); POTASSIUM 3.8 mmol/L (3.5-5.1); TOTAL BILIRUBIN 0.3 mg/dL (0.2-1.0); TOTAL PROTEIN 5.6 g/dL (6.4-8.2)
[2017-03-23 07:30] VITALS: BP 97/57
[2017-03-23] MEDS: LUBIPROSTONE 8 MCG CAPSULE PO SCH ×2 (08:18→17:39)
[2017-03-23] MEDS: POLYETHYLENE GLYCOL 3350 17 GM PACKET. PO SCH (08:19)
[2017-03-23] MEDS: PROMETHAZINE 25 MG in IV NORMAL SALINE 50ML 50 ML IV PRN (09:31)
--- NOTE | 2017-03-23 09:39 | PDOC ---
SUBJECTIVE Subjective still some nausea, No BM yet but passing gas, OBJECTIVE Vital Signs Vital Signs Date Time Temp Pulse Resp B/P (MAP) Pulse Ox O2 Delivery O2 Flow Rate FiO2 03/23/17 08:26 Room Air 03/23/17 07:30 98.6 75 19 97/57 (70) 99 Room Air 98.6 03/23/17 03:59 98.4 51 18 105/42 (63) 98 Room Air 98.4 03/22/17 23:00 99.0 58 18 89/41 (57) 98 Room Air 99.0 03/22/17 21:41 18 97 Room Air 03/22/17 21:11 20 Room Air 03/22/17 20:00 Room Air 03/22/17 19:00 99.1 56 18 116/41 (66) 100 Room Air 99.1 03/22/17 14:42 99.7 55 20 98/62 (74) 100 Room Air 99.7 03/22/17 10:34 99.7 71 20 98/58 (71) 100 Room Air 99.7 I & O Intake and Output 03/23/17 06:59 Intake Total 600 ml Output Total 900 ml Balance -300 ml Intake Oral 600 ml Output Urine Total 900 ml PHYSICAL EXAM Physical Exam abd less boated + BS, mild diffuse tenderness better otherwise no change ASSESSMENT/PLAN Assessment/Plan 1-constipation likely due to pain meds agree with treatment expect will have BM today, if nausea improve after that may discharge later this PM 2-abd pain,N/V due to constipation reviewed CT abd and KUB 3-anxiety Problems: COMMENT Lab Laboratory Tests Test 03/23/17 03:34 White Blood Count 6.2 x10^3/uL (4.0-11.0) Red Blood Count 3.58 x10^6/uL (3.50-5.40) Hemoglobin 10.8 g/dL (12.0-15.5) Hematocrit 32.5 % (36.0-47.0) Mean Corpuscular Volume 91 fL (79-100) Mean Corpuscular Hemoglobin 30 pg (25-35) Mean Corpuscular Hemoglobin Concent 33 g/dL (31-37) Red Cell Distribution Width 13.0 % (11.5-14.5) Platelet Count 233 x10^3/uL (140-400) Sodium Level 142 mmol/L (136-145) Potassium Level 3.8 mmol/L (3.5-5.1) Chloride Level 108 mmol/L (98-107) Carbon Dioxide Level 26 mmol/L (21-32) Anion Gap 8 (6-14) Blood Urea Nitrogen 9 mg/dL (7-20) Creatinine 0.9 mg/dL (0.6-1.0) Estimated GFR (Cockcroft-Gault) 68.0 BUN/Creatinine Ratio 10 (6-20) Glucose Level 112 mg/dL (70-99) Calcium Level 8.0 mg/dL (8.5-10.1) Total Bilirubin 0.3 mg/dL (0.2-1.0) Aspartate Amino Transf (AST/SGOT) 6 U/L (15-37) Alanine Aminotransferase (ALT/SGPT) 17 U/L (14-59) Alkaline Phosphatase 49 U/L (46-116) Total Protein 5.6 g/dL (6.4-8.2) Albumin 3.0 g/dL (3.4-5.0) Albumin/Globulin Ratio 1.2 (1.0-1.7) Amylase Level 44 U/L (25-115) Lipase 112 U/L (73-393) ANTONIO FERNANDEZ MD Mar 23, 2017 09:39
[2017-03-23 11:41] VITALS: BP 107/60
--- NOTE | 2017-03-23 13:19 | PDOC ---
G I PROGRESS NOTE Reason for Follow-up LLQ abd pain/constipation Subjective Still sluggish with minimal flatus Physical Exam Lungs clear CV S1 S2 ABD +BS, + LLQ tenderness to palpation Review of Relevant I have reviewed the following items jhon (where applicable) has been applied. Labs Laboratory Tests Test 03/21/17 14:50 03/23/17 03:34 White Blood Count 8.3 x10^3/uL (4.0-11.0) 6.2 x10^3/uL (4.0-11.0) Red Blood Count 3.55 x10^6/uL (3.50-5.40) 3.58 x10^6/uL (3.50-5.40) Hemoglobin 10.7 g/dL (12.0-15.5) 10.8 g/dL (12.0-15.5) Hematocrit 32.4 % (36.0-47.0) 32.5 % (36.0-47.0) Mean Corpuscular Volume 91 fL (79-100) 91 fL (79-100) Mean Corpuscular Hemoglobin 30 pg (25-35) 30 pg (25-35) Mean Corpuscular Hemoglobin Concent 33 g/dL (31-37) 33 g/dL (31-37) Red Cell Distribution Width 13.2 % (11.5-14.5) 13.0 % (11.5-14.5) Platelet Count 241 x10^3/uL (140-400) 233 x10^3/uL (140-400) Neutrophils (%) (Auto) 71 % (31-73) Lymphocytes (%) (Auto) 17 % (24-48) Monocytes (%) (Auto) 12 % (0-9) Eosinophils (%) (Auto) 0 % (0-3) Basophils (%) (Auto) 0 % (0-3) Neutrophils # (Auto) 5.8 x10^3uL (1.8-7.7) Lymphocytes # (Auto) 1.4 x10^3/uL (1.0-4.8) Monocytes # (Auto) 1.0 x10^3/uL (0.0-1.1) Eosinophils # (Auto) 0.0 x10^3/uL (0.0-0.7) Basophils # (Auto) 0.0 x10^3/uL (0.0-0.2) Sodium Level 140 mmol/L (136-145) 142 mmol/L (136-145) Potassium Level 3.2 mmol/L (3.5-5.1) 3.8 mmol/L (3.5-5.1) Chloride Level 106 mmol/L (98-107) 108 mmol/L (98-107) Carbon Dioxide Level 29 mmol/L (21-32) 26 mmol/L (21-32) Anion Gap 5 (6-14) 8 (6-14) Blood Urea Nitrogen 18 mg/dL (7-20) 9 mg/dL (7-20) Creatinine 0.8 mg/dL (0.6-1.0) 0.9 mg/dL (0.6-1.0) Estimated GFR (Cockcroft-Gault) 77.9 68.0 BUN/Creatinine Ratio 23 (6-20) 10 (6-20) Glucose Level 91 mg/dL (70-99) 112 mg/dL (70-99) Calcium Level 7.3 mg/dL (8.5-10.1) 8.0 mg/dL (8.5-10.1) Total Bilirubin 0.5 mg/dL (0.2-1.0) 0.3 mg/dL (0.2-1.0) Aspartate Amino Transf (AST/SGOT) 9 U/L (15-37) 6 U/L (15-37) Alanine Aminotransferase (ALT/SGPT) 25 U/L (14-59) 17 U/L (14-59) Alkaline Phosphatase 49 U/L (46-116) 49 U/L (46-116) Total Protein 5.9 g/dL (6.4-8.2) 5.6 g/dL (6.4-8.2) Albumin 3.3 g/dL (3.4-5.0) 3.0 g/dL (3.4-5.0) Albumin/Globulin Ratio 1.3 (1.0-1.7) 1.2 (1.0-1.7) Amylase Level 44 U/L (25-115) Lipase 112 U/L (73-393) Laboratory Tests Test 03/23/17 03:34 White Blood Count 6.2 x10^3/uL (4.0-11.0) Red Blood Count 3.58 x10^6/uL (3.50-5.40) Hemoglobin 10.8 g/dL (12.0-15.5) Hematocrit 32.5 % (36.0-47.0) Mean Corpuscular Volume 91 fL (79-100) Mean Corpuscular Hemoglobin 30 pg (25-35) Mean Corpuscular Hemoglobin Concent 33 g/dL (31-37) Red Cell Distribution Width 13.0 % (11.5-14.5) Platelet Count 233 x10^3/uL (140-400) Sodium Level 142 mmol/L (136-145) Potassium Level 3.8 mmol/L (3.5-5.1) Chloride Level 108 mmol/L (98-107) Carbon Dioxide Level 26 mmol/L (21-32) Anion Gap 8 (6-14) Blood Urea Nitrogen 9 mg/dL (7-20) Creatinine 0.9 mg/dL (0.6-1.0) Estimated GFR (Cockcroft-Gault) 68.0 BUN/Creatinine Ratio 10 (6-20) Glucose Level 112 mg/dL (70-99) Calcium Level 8.0 mg/dL (8.5-10.1) Total Bilirubin 0.3 mg/dL (0.2-1.0) Aspartate Amino Transf (AST/SGOT) 6 U/L (15-37) Alanine Aminotransferase (ALT/SGPT) 17 U/L (14-59) Alkaline Phosphatase 49 U/L (46-116) Total Protein 5.6 g/dL (6.4-8.2) Albumin 3.0 g/dL (3.4-5.0) Albumin/Globulin Ratio 1.2 (1.0-1.7) Amylase Level 44 U/L (25-115) Lipase 112 U/L (73-393) Medications Current Medications Sodium Chloride 1,000 ml @ 0 mls/hr 1X ONCE IV Last administered on 03/21/17 10:06; Start 03/21/17 at 10:30; Stop 03/21/17 at 10:31; Status DC Sodium Chloride 1,000 ml @ 1,000 mls/hr 1X ONCE IV Last administered on 11:35; Start 03/21/17 at 12:00; Stop 03/21/17 at 12:59; Status DC Ondansetron HCl (Zofran) 4 mg 1X ONCE IV Last administered on 03/21/17 12:15; Start 03/21/17 at 12:00; Stop 03/21/17 at 12:02; Status DC Potassium Chloride/Dextrose/ Sod Cl 1,000 ml @ 150 mls/hr Q6H40M IV Last administered on 03/23/17 08:19; Start 03/21/17 at 15:00 Ondansetron HCl (Zofran) 4 mg PRN Q4HRS PRN IV NAUSEA/VOMITING Last administered on 03/21/17 21:49; Start 03/21/17 at 14:30 Lorazepam (Ativan) 2 mg PRN Q12HR PRN IV ANXIETY / AGITATION Last administered on 03/21/17 14:53; Start 03/21/17 at 14:30; Stop 03/21/17 at 21:28; Status DC Polyethylene Glycol (miraLAX PACKET) 17 gm DAILY PO Last administered on 08:19; Start 03/22/17 at 09:00 Sodium Cl/Sod Bicarb/Potass Cl/ PEG (Golytely) 4,000 ml 1X ONCE PO Last administered on 03/21/17 17:48; Start 03/21/17 at 18:00; Stop 03/21/17 at 18:01; Status DC Lubiprostone (Amitiza) 8 mcg BIDWMEALS PO Last administered on 03/22/17 08:23; Start 03/21/17 at 17:00; Stop 03/22/17 at 12:19; Status DC Ketorolac Tromethamine (Toradol) 30 mg PRN Q6HRS PRN IV PAIN Last administered on 03/22/17 16:35; Start 03/21/17 at 17:00; Stop 03/26/17 at 16:59 Promethazine HCl 25 mg/Sodium Chloride 51 ml @ 101 mls/hr PRN Q6HRS PRN IV NAUSEA/VOMITING Last administered on 03/23/17 09:31; Start 03/21/17 at 18:00 Lorazepam (Ativan) 2 mg PRN Q8HRS PRN IV ANXIETY / AGITATION Last administered on 03/23/17 10:55; Start 03/21/17 at 22:00 Methylnaltrexone [place] (Relistor) 12 mg 1X ONCE SQ Last administered on 12:58; Start 03/22/17 at 12:00; Stop 03/22/17 at 12:01; Status DC Lubiprostone (Amitiza) 24 mcg BIDWMEALS PO Last administered on 03/23/17 08:18 ; Start 03/22/17 at 17:00 Morphine Sulfate 2 mg 1X ONCE IV Last administered on 03/22/17 21:11; Start at 21:00; Stop 03/22/17 at 21:01; Status DC Active Scripts Active Naproxen 500 Mg Tablet. 1 Tab PO BID Zofran Odt (Ondansetron) 4 Mg Tab.rapdis 1 Tab SL Q8HRS [place] 5-325 Tablet (Acetaminophen/Hydrocodone Bitart) 1 Each Tablet 1 Tab PO PRN Q6HRS PRN Reported Vitamin B-12 (Cyanocobalamin (Vitamin B-12)) 1,000 Mcg Tablet 1 Tab PO DAILY Omeprazole 40 Mg Capsule. 1 Cap PO DAILY Xanax (Alprazolam) 1 Mg Tablet 1 Tab PO BID Vitals/I & O Vital Sign - Last 24 Hours 03/22/17 03/22/17 03/22/17 03/22/17 14:42 19:00 20:00 21:11 Temp 99.7 99.1 99.7 99.1 Pulse 55 56 Resp 20 18 20 B/P (MAP) 98/62 (74) 116/41 (66) Pulse Ox 100 100 O2 Delivery Room Air Room Air Room Air Room Air 03/22/17 03/22/17 03/23/17 03/23/17 21:41 23:00 03:59 07:30 Temp 99.0 98.4 98.6 99.0 98.4 98.6 Pulse 58 51 75 Resp 18 18 18 19 B/P (MAP) 89/41 (57) 105/42 (63) 97/57 (70) Pulse Ox 97 98 98 99 O2 Delivery Room Air Room Air Room Air Room Air 03/23/17 03/23/17 08:26 11:41 Temp 99.6 99.6 Pulse 60 Resp 19 B/P (MAP) 107/60 (76) Pulse Ox 98 O2 Delivery Room Air Room Air Intake and Output 03/22/17 03/22/17 03/23/17 15:00 23:00 07:00 Intake Total 300 ml 300 ml Output Total 500 ml 400 ml Balance -200 ml -100 ml Problem List Constipation- persistent issues despite amitiza, relistor and enemas, will have patient complete go lytely and reassess. If no response then colonoscopy/ sigmoidoscopy early next week to assess for luminal obstruction- cancer, stricture, volvulus CHACE MCNEAL MD Mar 23, 2017 13:19
[2017-03-23 15:29] VITALS: BP 85/42
[2017-03-23] MEDS: KETOROLAC TROMETHAMINE 30 MG/ML INJ. IV PRN ×2 (17:33→23:48)
[2017-03-23] MEDS ORDERED: IV NORMAL SALINE 1000ML BAG 1,000 ML IV ONE (17:45)
[2017-03-23 19:00] VITALS: BP 97/44
[2017-03-23] MEDS ORDERED: MORPHINE SULFATE 2 MG/ML DISP.SYRIN. IV ONE (21:00)
[2017-03-23 23:00] VITALS: BP 123/39
[2017-03-24] MEDS: POTASSIUM CL 20MEQ D5-0.45NACL 1,000 ML IV SCH ×2 (03:11→08:53)
--- NOTE | 2017-03-24 04:57 | ACF ---
Admission Forms Criteria ABDOMINAL PAIN Clinical Indications for Admission to Inpatient Care (Place 'X' for any and all applicable criteria): Admission is indicated for ANY ONE of the following(1)(2)(3)(4)(5): [X]I. Inpatient admission required rather than observation care (Also use Abdominal Pain: Observation Care, as appropriate) because of ANY ONE of the following: [ ]a) Severe pain requiring acute inpatient management [ ]b) Identification of etiology/finding that requires inpatient care (eg, aortic dissection, free air) [ ]c) Absent bowel sounds with complete ileus(6) [ ]d) Suspected toxic megacolon [ ]e) Severe electrolyte abnormalities requiring inpatient care [ ]f) High fever or infection requiring inpatient admission as indicated by ANY ONE of following(7)(8): [ ] i) Appropriate outpatient or observational care antimicrobial treatment unavailable, not effective, or not feasible [ ] ii) Documented bacteremia [ ] iii) Temperature > 104.9 degrees F (oral) [ ] iv) T >103.1 F (oral) or < 96.8 F(rectal) that does not respond to all emergency treatment measures [ ]g) Signs of intestinal obstruction [B] [ ]h) Hemodynamic instability [ ]i) IV fluid to replace significant ongoing losses (greater than 3 L/m2 per day) (12)(13) [ ]j) Percutaneous or open drainage (eg, abscess, biliary tract ) procedures [ ]k) Parenteral nutrition regimen that must be implemented on inpatient basis [X]l) Other condition,treatment or monitoring requiring inpatient admission. [ ]II. Peritoneal signs present [ ]III. Surgery needed that cannot be performed on an ambulatory basis. [ ]IV. Evaluation requires patient to not eat or drink for extended period ( eg, more than 24 hours). [ ]V. Contraindications and/or Inappropriate clinical situations for Observational Care in patients with abdominal pain, when ANY ONE of the following is required: [ ]a) Thorough evaluation is required to prevent catastrophic events due to delays in diagnosing (e.g.Mesenteric ischemia) 1,3 [ ]b) Patient with severe pathology or with chronic symptoms unlikely to improve in the ED stay (3) [ ]. General contraindications and/or Inappropriate clinical situations for Observational Care in patients with abdominal pain, when ANY ONE of the following is required: [ ]a) Prediction of prolongation of LOS based on ANY ONE of the following may be considered as a contraindication for observational care 2, 3, 4, 5, 6, 7, 8, 9, 10, 11 [ ]i) Age > 65 yrs. [ ]ii) Patient arriving by ambulance [ ]iii) Patient with high acuity [ ]iv) Patient requiring vital sign monitoring [ ]v) Patient on IV medication [ ]b) Systolic blood pressures 180mmHg 3,12 [ ]c) Patient with altered mental status including delirium and other alteration of consciousness, (3) [ ]d) Patient whose discharge disposition will be to a [facility] home or rehabilitation home should not be managed in Emergency Department Observation Unit. CMS rule requires 3 days hospital stay before such placement.3,13 [ ]e) Patient with failure to thrive due to broad array of etiologies 3,16,17 [ ]f) Inability to ambulate 3,14 Extended stay beyond goal length of stay may be needed for(2)(3): [ ]a) Persistent abdominal pain with suspected intra-abdominal process [ ]b) Diagnosed condition requiring continued stay (e.g., pancreatitis, complicated diverticulitis) [ ]c) Surgery (e.g., colectomy) The original [email or web address] content created by [employer] has been revised. The portions of the content which have been revised are identified through the use of italic text or in bold, and [facility] has neither reviewed nor approved the modified material.All other unmodified content is copyright [email or web address]. Please see references footnoted in the original [email or web address] edition 2016 Admission Criteria Met?: Yes GREGG ARREOLA Mar 24, 2017 04:57
[2017-03-24 07:00] VITALS: BP 103/56
[2017-03-24] MEDS: POLYETHYLENE GLYCOL 3350 17 GM PACKET. PO SCH (08:38)
[2017-03-24] MEDS: LUBIPROSTONE 8 MCG CAPSULE PO SCH (08:39)
--- NOTE | 2017-03-24 09:55 | PDOC ---
GENERAL General: vss with tmax 100.6. feels little better this am but no bm to date although having flatus. abdominal distention mild on exam. has had miralax, golytely, etc. expect bm today with possible dc after same if feels normal. Problems: VITAL SIGNS Vital Signs: Vital Signs Date Time Temp Pulse Resp B/P (MAP) Pulse Ox O2 Delivery O2 Flow Rate FiO2 03/24/17 08:54 Room Air 03/24/17 07:00 98.6 64 18 103/56 (72) 97 98.6 I & O I & O Intake and Output 03/24/17 07:00 Intake Total 200 ml Output Total 400 ml Balance -200 ml Intake Oral 200 ml Output Urine Total 400 ml ALLERGIES Allergies: Allergies Coded Allergies Type Severity Reaction Last Updated Verified acetaminophen Allergy Intermediate nausea vomitting 03/21/17 Yes hydrocodone Allergy Intermediate nasuea vomiting 03/21/17 Yes oxycodone Allergy Intermediate nausea vomitting, MORPHINE OK 03/23/17 Yes MEDS Medications: Current Medications Medications (Trade) Dose Ordered Sig/Maricarmen Start Time Stop Time Status Last Admin Dose Admin Ketorolac Tromethamine (Toradol) 30 mg PRN Q6HRS PRN 03/21/17 17:00 03/26/17 16:59 03/23/17 23:48 30 MG Lorazepam (Ativan) 2 mg PRN Q8HRS PRN 03/21/17 22:00 03/24/17 08:39 2 MG Lubiprostone (Amitiza) 24 mcg [id number] 03/22/17 17:00 03/24/17 08:39 24 MCG Methylnaltrexone [place] (Relistor) 12 mg 1X ONCE 03/22/17 12:00 03/22/17 12:01 DC 03/22/17 12:58 12 MG Morphine Sulfate 2 mg 1X ONCE 03/23/17 21:00 03/23/17 21:01 DC 03/23/17 20:19 2 MG Ondansetron HCl (Zofran) 4 mg PRN Q4HRS PRN 03/21/17 14:30 03/21/17 21:49 4 MG Polyethylene Glycol (miraLAX PACKET) 17 gm DAILY 03/22/17 09:00 03/24/17 08:38 17 GM Potassium Chloride/Dextrose/ Sod Cl 1,000 ml @ 150 mls/hr Q6H40M 03/21/17 15:00 03/24/17 08:53 150 MLS/HR Promethazine HCl 25 mg/Sodium Chloride 51 ml @ 101 mls/hr PRN Q6HRS PRN 03/21/17 18:00 03/23/17 09:31 101 MLS/HR Sodium Chloride 1,000 ml @ 1,000 mls/hr 1X ONCE 03/23/17 17:45 03/23/17 18:44 DC 03/23/17 17:42 1,000 MLS/HR Sodium Cl/Sod Bicarb/Potass Cl/ PEG (Golytely) 4,000 ml 1X ONCE 03/21/17 18:00 03/21/17 18:01 DC 03/21/17 17:48 4,000 ML VAISHNAVI LI MD Mar 24, 2017 09:55
[2017-03-24 11:00] VITALS: BP 95/38
== END 2017-03-24 11:54 | disposition home or self-care (01) | DRG 392 ==
LOC: OPS 09:39 → 6 SOUTH 12:15
PROVIDERS: ADMIT Internal Medicine; ATTEND Internal Medicine
DX: K59.00 Constipation, unspecified (principal); F41.9 Anxiety disorder, unspecified; K21.9 Gastro-esophageal reflux disease without esophagitis; Z81.8 Family history of other mental and behavioral disorders; F32.9 Major depressive disorder, single episode, unspecified; E86.0 Dehydration; Z98.51 Tubal ligation status; Z88.1 Allergy status to other antibiotic agents; Z88.5 Allergy status to narcotic agent; Z88.8 Allergy status to other drugs, medicaments and biological substances
CPT/HCPCS: 36415; 74000; 80053; 82150; 83690; 85027; 96360; 96361; 96374; J1885; J2060; J2212; J2270; J2405; J2550; J7030

== ENCOUNTER → 2019-03-31 | Outpatient (CLI) | payer OTHER ==
[~2019-03-31] MED LIST changes: +CYAN-25 PO; -CYAN10005 PO; +HYDR-3164 PO; -HYDR-971 PO
[2019-03-31 16:58] LABS: BASO % 1 % (0-3); EOS # 0.1 x10^3/uL (0.0-0.7); EOS % 1 % (0-3); HEMATOCRIT 43.4 % (36.0-47.0); HEMOGLOBIN 14.7 g/dL (12.0-15.5); LYMPH # 1.2 x10^3/uL (1.0-4.8); LYMPH % 18 % (24-48); MEAN CORPUSCULAR HEMOGLOBIN 31 pg (25-35); MEAN CORPUSCULAR HGB CONC 34 g/dL (31-37); MEAN CORPUSCULAR VOLUME 90 fL (79-100); MONO # 0.6 x10^3/uL (0.0-1.1); MONO % 8 % (0-9); NEUT # 4.9 x10^3/uL (1.8-7.7); NEUT % 72 % (31-73); PLATELET COUNT 316 x10^3/uL (140-400); RED BLOOD COUNT 4.81 x10^6/uL (3.50-5.40); WHITE BLOOD COUNT 6.8 x10^3/uL (4.0-11.0)
[2019-03-31 17:18] LABS: ALBUMIN 4.5 g/dL (3.4-5.0); ALBUMIN/GLOBULIN RATIO 1.3 (1.0-1.7); CALCIUM 9.7 mg/dL (8.5-10.1); CREATININE 1.1 mg/dL (0.6-1.0); GFR 53.5; POTASSIUM 3.9 mmol/L (3.5-5.1); TOTAL BILIRUBIN 0.7 mg/dL (0.2-1.0)
[2019-03-31 17:25] LABS: CHOLESTEROL/HDL RATIO 3.8
[2019-04-01 01:08] LABS: HEMOGLOBIN A1C 5.6 % (4.8-5.6)
== END | disposition home or self-care (01) ==
LOC: LAB 16:24
PROVIDERS: ATTEND Family Medicine
DX: G62.9 Polyneuropathy, unspecified (principal); E55.9 Vitamin D deficiency, unspecified; E78.5 Hyperlipidemia, unspecified
CPT/HCPCS: 36415; 80053; 80061; 82306; 82607; 82652; 82746; 83036; 84443; 85025